=== PATIENT | male | born 1960 ===

== ENCOUNTER 2024-11-23 08:57 | Day surgery (SDC) | payer BC, MEDICARE ==
[~2024-11-23] VITALS: Ht 177.8 cm; Wt 100.0 kg
[2024-11-23] MEDS ORDERED: ATOR20 PO (09:45)
[2024-11-23] MEDS ORDERED: ASPI325 PO (09:45)
[2024-11-23] MEDS ORDERED: CIPR500 PO (09:46)
[2024-11-23] MEDS ORDERED: NS 1,000 ML IV ONE ×2 (09:46→10:38)
[2024-11-23] MEDS ORDERED: NS 250 ML IV ONE ×3 (09:46→11:59)
[2024-11-23] MEDS ORDERED: Heparin Sodium 1000 Units/ML 10ML MDV ONE ×2 (09:46→11:59)
[2024-11-23] MEDS ORDERED: Cabergoline0.5 MG PO (09:46)
[2024-11-23] MEDS ORDERED: JARDIANCE25 MG PO (09:47)
[2024-11-23] MEDS ORDERED: SITA100T2 PO (09:48)
[2024-11-23] MEDS ORDERED: INSULANI INJ (09:48)
[2024-11-23] MEDS ORDERED: LISI10 PO (09:48)
[2024-11-23] MEDS ORDERED: METF500 PO (09:49)
[2024-11-23] MEDS ORDERED: Flomax0.4 MG PO (09:50)
[2024-11-23] MEDS ORDERED: Verapamil HCL 2.5 MG/ML 2ML Injection ONE (09:54)
[2024-11-23] MEDS ORDERED: Nitroglycerin 2 MG/20 ML BTL ONE (09:55)
[2024-11-23] MEDS ORDERED: FentaNYL Citrate 50 MCG/ML 2 ML Injection ONE (10:38)
[2024-11-23] MEDS ORDERED: Midazolam HCl 1MG / ML 2ML Vial ONE (10:38)
[2024-11-23 13:00] VITALS: BP 133/87
--- NOTE | 2024-11-23 13:14 | NUR ---
REPORT RECEIVED, EMBOLIZATION HALF BUT DUE TO RADIATION WILL NEED TO RETURN FOR SECOND HALF TO BE DONE, ABLE TO COMMUNICATE TO PATIENT VIA HIS DAUGHTER, SUSAN. ATTEMPT TO CONVEY PLAN TO PATIENT WHO SPEAKS SOME ESTONIAN AND THIS RN SPEAKS LITTLE HEBREW. DENIES NEEDS, CALL LIGHT IN REACH, TR BAND IN PLACE AND GOOD PULSES PROX/DISTAL, PATIENT OTHERWISE RESTING, D/C PENDING.
[2024-11-23 13:15] VITALS: BP 141/87
[2024-11-23 13:30] VITALS: BP 133/59
[2024-11-23 13:45] VITALS: BP 136/99
[2024-11-23 14:00] VITALS: BP 141/88
[2024-11-23 14:16] VITALS: BP 131/120
--- NOTE | 2024-11-23 14:52 | NUR ---
REPORT RECEIVED EARLIER, TR BAND INTACT AT THAT TIME, DISCHARGE INSTRUCTIONS PRINTED IN [place]IZ[place], DISCUSSED WITH FAMILY AND PATIENT, NO QUESTIONS OR CONCERNS AT THAT TIME, DISCUSSED AND GIVEN COPY HOME MEDICATIONS AND FOLLOW UP APPOINTMENT SCHEDULED FOR VIRTUAL MEETING AT 10:00. NO ADDITIONAL CONCERNS, VSS, TR BAND REMOVED, SITE REMAINS INTACT, PATIENT GETTING DRESSED AT PRESENT, IV REMOVED, BELONGINGS RETURNED. DISCHARGE OTHERWISE PENDING.
--- NOTE | 2024-11-23 15:03 | NUR ---
PATIENT UP TO RESTROOM, AND ON RETURN WAS DRESSED, AND SON HAVE BELONGINGS, TAKEN BY WHEELCHAIR ACCOMPANIED BY THIS RN AND FAMILY, LEFT UNIT AT 1500, NO CONCERNS AT TIME OF D/C HOME.
== END 2024-11-23 23:30 | disposition home or self-care (01) ==
LOC: MHTC 08:57
DX: N40.1 Benign prostatic hyperplasia with lower urinary tract symptoms (principal); R33.8 Other retention of urine; I10 Essential (primary) hypertension; E78.5 Hyperlipidemia, unspecified; E11.9 Type 2 diabetes mellitus without complications; Z79.4 Long term (current) use of insulin; Z79.84 Long term (current) use of oral hypoglycemic drugs; Z79.82 Long term (current) use of aspirin; Z79.899 Other long term (current) drug therapy
CPT/HCPCS: 76937; 93005; 93010; 99152; 99153; C1769; C1894; J1644; J2250; J3010; J7030; J7050; Q9967

== ENCOUNTER 2024-12-22 06:54 | Day surgery (SDC) | payer BC, MEDICARE ==
[~2024-12-22] VITALS: Ht 177.8 cm; Wt 100.0 kg
[~2024-12-22 06:54] MED LIST: ASPI325 PO; ATOR20 PO; CIPR500 PO; Cabergoline0.5 MG PO; Flomax0.4 MG PO; INSULANI INJ; JARDIANCE25 MG PO; LISI10 PO; METF500 PO; SITA100T2 PO
[2024-12-22] MEDS ORDERED: NS 250 ML IV ONE (07:14)
[2024-12-22] MEDS ORDERED: Verapamil HCL 2.5 MG/ML 2ML Injection ONE (07:14)
[2024-12-22] MEDS ORDERED: Heparin Sodium 1000 Units/ML 10ML MDV ONE (07:14)
[2024-12-22] MEDS ORDERED: NS 1,000 ML IV ONE ×2 (07:15→07:51)
[2024-12-22] MEDS ORDERED: Nitroglycerin 2 MG/20 ML BTL ONE (07:15)
[2024-12-22] MEDS ORDERED: NS 500 ML IV ONE (07:21)
[2024-12-22 07:40] VITALS: BP 140/87
[2024-12-22 07:45] VITALS: BP 172/98
[2024-12-22] MEDS ORDERED: Midazolam HCl 1MG / ML 2ML Vial ONE ×2 (07:51→08:59)
[2024-12-22] MEDS ORDERED: FentaNYL Citrate 50 MCG/ML 2 ML Injection ONE ×2 (07:51→08:59)
[2024-12-22 08:00] VITALS: BP 145/80
[2024-12-22 09:45] VITALS: BP 127/85
[2024-12-22 10:00] VITALS: BP 140/98
--- NOTE | 2024-12-22 11:46 | NUR ---
REPORT RECEIVED EARLIER, STABLE SITE, NO HEMATOMA OR CONCERNS, SON AND AT BEDSIDE, DISCUSS D/C INSTRUCTIONS, F/U APPT SCHEDULED, GIVEN MED LIST COPY, DENY QUESTIONS, CONCERNS. LATER, REMOVED AIR FROM TR BAND AND TR BAND REMOVED, NO HEMATOMA OR CONCERNS, IV REMOVED, BELONGINGS GATHERED, TAKEN BY FAMILY VIA WHEELCHAIR, NO CONCERNS AT TIME OF D/C.
== END 2024-12-22 11:30 | disposition home or self-care (01) ==
LOC: MHTC 06:54
DX: N40.1 Benign prostatic hyperplasia with lower urinary tract symptoms (principal); I10 Essential (primary) hypertension; E11.9 Type 2 diabetes mellitus without complications; E78.5 Hyperlipidemia, unspecified; Z79.82 Long term (current) use of aspirin; Z79.4 Long term (current) use of insulin; Z79.899 Other long term (current) drug therapy
CPT/HCPCS: 37242; 75716; 76937; 99152; 99153; C1769; C1887; C1894; J1644; J2250; J3010; J7030; J7040; J7050; Q9967